=== PATIENT | male | born 1945 | race Caucasian/White ===

== ENCOUNTER 2017-09-15 03:43 | Emergency (ER) | payer OTHER ==
[~2017-09-15] VITALS: Ht 181.6 cm; Wt 128.0 kg
[~2017-09-15 03:43] MED LIST: ADDE20TA OR; ASCO500C PO; METF-324 OR; SIMVPOW XX; VITA100018 PO
[2017-09-15 03:50] VITALS: BP 152/72; PULSE 82; RESP 20; TEMP 99.1; O2SAT 95
[2017-09-15] MEDS ORDERED: VITA250T5 PO (04:05)
[2017-09-15] MEDS ORDERED: METF1000 PO (04:05)
[2017-09-15] MEDS ORDERED: VITA1000 PO (04:05)
[2017-09-15] MEDS ORDERED: ADDE30TA PO (04:05)
[2017-09-15] MEDS ORDERED: SIMV20TA PO (04:05)
[2017-09-15] MEDS ORDERED: OCUVTAB PO (04:05)
[2017-09-15] MEDS ORDERED: TETANUS/DIPHTHERIA TOXOID ADULT 0.5 ML VIAL IM ONE (04:15)
--- NOTE | 2017-09-15 04:19 | PD ---
HPI Chief Complaint: Fall Time Seen by Provider: 03:57 Travel History International Travel<30 days: No Contact w/Intl Traveler<30days: No Traveled to known affect area: No History of Present Illness HPI 72-year-old male complains of right hip pain and right knee pain. Patient states that he fell 2 days ago. Patient states that he has abrasion to the right forearm. Patient states that he has been using [id number]-[id number] ointment with dressing to right forearm. Patient states that he has persistent pain on the right knee after the fall. Patient is not having sharp pain in the right low back area with radiation to right hip and the right leg Since yesterday. Patient denies any focal weakness or numbness extremity. Patient states that the pain is worse with weightbearing. On a scale from 1-10 the pain is a 7. Patient states that he is not up-to-date with TD booster. PFSH Past Medical History Cerebrovascular Accident: Yes Diabetes: Yes (ON METFORMIN) Patient Takes Glucophage: Yes Diminished Hearing: No Tetanus Vaccination: Unknown Influenza Vaccination: Yes Social History Alcohol Use: No Tobacco Use: Yes Substance Use: No Allergies-Medications (Allergen,Severity, Reaction): Coded Allergies: No Known Allergies (Unverified , 09/15/17) Reported Meds & Prescriptions Reported Meds & Active Scripts Active Wayne (Hydrocodone-Acetaminophen) 5 Mg-325 Mg Tab 1 Tab PO Q6H PRN Reported Vitamin B-12 (Cyanocobalamin) 250 Mcg Tab 250 Mcg PO DAILY Vitamin D-1000 (Cholecalciferol) 1,000 Unit Tab 1,000 Units PO DAILY Ocuvite (Multiple Vitamins W/ Minerals) 1 Tab 1 Tab PO DAILY Simvastatin 20 Mg Tab 20 Mg PO DAILY Metformin (Metformin HCl) 1,000 Mg Tab 1,000 Mg PO BIDPC Adderall (Amphetamine-Dextroamphetamine) 30 Mg Tab 30 Mg PO DAILY Avoid late evening doses. Space doses at least 4 to 6 hours if more than once/day dosing. Review of Systems General / Constitutional: No: Fever Eyes: No: Visual changes HENT: No: Headaches Cardiovascular: No: Chest Pain or Discomfort Respiratory: No: Shortness of Breath Gastrointestinal: No: Abdominal Pain Genitourinary: No: Dysuria Musculoskeletal: Positive: Pain Skin: No Rash Neurologic: No: Weakness Psychiatric: No: Depression Endocrine: No: Polydipsia Hematologic/Lymphatic: No: Easy Bruising Physical Exam Narrative GENERAL: Well-nourished, well-developed patient. SKIN: Focused skin assessment warm/dry. HEAD: Normocephalic. EYES: No scleral icterus. No injection or drainage. NECK: Supple, trachea midline. No JVD or lymphadenopathy. CARDIOVASCULAR: Regular rate and rhythm without murmurs, gallops, or rubs. RESPIRATORY: Breath sounds equal bilaterally. No accessory muscle use. GASTROINTESTINAL: Abdomen soft, non-tender, nondistended. MUSCULOSKELETAL: Patient has healing abrasions on the right forearm. No redness no heat no discharge noted. No active bleeding. No tenderness on palpation bony structure right arm. Full range of motion of the shoulder elbow and wrist. Patient has diffuse tenderness of the right knee joint. Full range of motion of the right knee. Knee joint stable. Patient has mild tenderness to palpation posterior aspect of the right hip joint. Full range of motion the right hip. No tenderness in palpation of low back area. BACK: Nontender without obvious deformity. No CVA tenderness. Neurologic exam normal. Data Data Last Documented VS Vital Signs Date Time Temp Pulse Resp B/P (MAP) Pulse Ox O2 Delivery O2 Flow Rate FiO2 09/15/17 04:07 96 Room Air 09/15/17 03:50 99.1 82 20 152/72 (98) Orders Orders Hip, Uni(Ap&Lat) W Ap Pelvis (09/15/17 04:09) Knee, Complete (4vws) (09/15/17 04:09) Tetanus/Diphtheria Tox Adult (Tetanus/Di (09/15/17 04:15) Wound Care (09/15/17 04:09) Dexamethasone Inj (Decadron Inj) (09/15/17 05:15) Acetamin-Hydrocod 325-5 Mg (Wayne 5-325 (09/15/17 05:15) MDM Medical Decision Making Medical Screen Exam Complete: Yes Emergency Medical Condition: Yes Interpretation(s) Last Impressions Knee X-Ray 09/15/17408 Signed Impressions: Service Date/Time: Friday, September 15, 2017 04:30 - CONCLUSION: 1. Moderate osteoarthritis with small joint effusion. No acute fracture. Neo Pack MD Hip and Pelvis X-Ray 09/15/17408 Signed Impressions: Service Date/Time: Friday, September 15, 2017 04:30 - CONCLUSION: 1. No acute findings. Neo Pack MD Differential Diagnosis Differential diagnosis including abrasion, contusion, sprain, fracture, dislocation. Narrative Course 72-year-old male complains of right low back pain, right hip pain, right knee pain. Td booster given. Decadron 8 mg IM. Lortab 5/325, 1 tablet p.o. given. Diagnosis Primary Impression: Right knee sprain Qualified Codes: S83.91XA - Sprain of unspecified site of right knee, initial encounter Additional Impressions: Right sided sciatica Abrasion of right arm Qualified Codes: S40.811A - Abrasion of right upper arm, initial encounter Patient Instructions: General Instructions Med/Other Pt SpecificInfo: Prescription(s) given Scripts Hydrocodone-Acetaminophen (Wayne) 5 Mg-325 Mg Tab 1 TAB PO Q6H Y for PAIN, #12 TAB 0 Refills Prov: Chetan Das MD 09/15/17 Disposition: 01 DISCHARGE HOME Condition: Stable Chetan Das MD Sep 15, 2017 04:19
--- NOTE | 2017-09-15 04:52 | RADRPT ---
EXAM DATE/TIME: 09/15/2017 04:30 [facility] COMPARISON: No previous studies available for comparison. INDICATIONS : Right knee pain post fall. MEDICAL HISTORY : None. SURGICAL HISTORY : None. ENCOUNTER: Initial ACUITY: 2 days PAIN SCORE: 8/10 LOCATION: Right knee. FINDINGS: No fracture or dislocation. Small joint effusion. Moderate osteoarthritis. CONCLUSION: 1. Moderate osteoarthritis with small joint effusion. No acute fracture. Neo Pack MD on September 15, 2017 at 4:49 Board Certified Radiologist. This report was verified electronically.
--- NOTE | 2017-09-15 04:53 | RADRPT ---
EXAM DATE/TIME: 09/15/2017 04:30 [facility] COMPARISON: No previous studies available for comparison. INDICATIONS : Right hip pain post fall. MEDICAL HISTORY : None. SURGICAL HISTORY : None. ENCOUNTER: Initial ACUITY: 2 days PAIN SCORE: 8/10 LOCATION: Right hip. FINDINGS: Examination of the right hip was performed with AP Pelvis. The primary and secondary trabecular antwan adelita of the femoral neck is intact. The hip joint is of normal width without significant sclerosis or bony hypertrophy. The acetabulum is grossly intact. CONCLUSION: 1. No acute findings. Neo Pakc MD on September 15, 2017 at 4:50 Board Certified Radiologist. This report was verified electronically.
[2017-09-15] MEDS ORDERED: NORC5TAB PO (05:09)
[2017-09-15] MEDS ORDERED: ACETAMINOPHEN/HYDROcodone 325 MG/5 MG TAB PO ONE (05:15)
[2017-09-15] MEDS ORDERED: DEXAMETHASONE SOD PHOS 4 MG/ML VIAL IM ONE (05:15)
== END 2017-09-15 05:29 | disposition home or self-care (01) ==
LOC: PHED 03:43
DX: S83.91XA Sprain of unspecified site of right knee, initial encounter (principal); M54.31 Sciatica, right side; S50.811A Abrasion of right forearm, initial encounter; W19.XXXA Unspecified fall, initial encounter; Z23 Encounter for immunization; E11.9 Type 2 diabetes mellitus without complications; Z72.0 Tobacco use; Z86.73 Personal history of transient ischemic attack (TIA), and cerebral infarction without residual deficits; Z79.84 Long term (current) use of oral hypoglycemic drugs; Z79.899 Other long term (current) drug therapy
CPT/HCPCS: 73502; 73564; 90471; 90714; 96372; 99284; J1100